=== PATIENT | female | born 1980 | race Two or more races ===

== ENCOUNTER 2024-12-18 14:17 | Emergency (ER) | payer OTHER ==
[~2024-12-18] VITALS: Ht 154.9 cm; Wt 72.6 kg
[2024-12-18] MEDS ORDERED: AUGMENTIN125 MG/5 M (14:30)
[2024-12-18] MEDS ORDERED: KETO10TA2 (14:30)
[2024-12-18] MEDS ORDERED: ONDANSETRON HCL 2 MG/ML VIAL IV ONE (15:00)
[2024-12-18] MEDS ORDERED: FAMOTIDINE/PF 20 MG/2 ML VIAL IV ONE (15:00)
[2024-12-18] MEDS ORDERED: MECLIZINE HCL 25 MG TABLET PO ONE (15:00)
[2024-12-18 16:08] LABS: BASO % 0.6 % (0.1-1.2); EOS # 0.23 (0.04-0.54); EOS % 2.7 % (0.7-7.0); LYMPH # 2.00 (1.18-3.74); LYMPH % 23.7 % (19.3-53.1); MEAN PLATELET VOLUME 11.80 fl (9.4-12.4); MONO # 0.43 (0.24-0.82); MONO % 5.1 % (4.7-12.5); NEUT # 5.70 (1.56-6.13); NEUT % 67.5 % (34.0-71.1); RED CELL DISTRIBUTION WIDTH 15.9 % (11.6-14.4)
[2024-12-18 16:35] LABS: ALT/SGPT 36.0 U/L (12-78); AST/SGOT 24.0 U/L (15-37); BILIRUBIN TOTAL 0.38 mg/dL (0.3-1.2); BUN CREA RATIO 16.0 (7.0-25.0); CREATININE SERUM 0.63 mg/dL (0.55-1.02); GFR 102.66; GLOBULINA 4.0 G/DL (2.4-3.5); GLUCOSE FASTING 98.0 mg/dL (65-100); OSMOLALITY SERUM 286.0 MOSM/KG (275-295)
[2024-12-18] MEDS ORDERED: FUSION PLUS CA1 EACH PO (17:32)
== END 2024-12-18 17:51 | disposition home or self-care (01) ==
LOC: ER 14:17
PROVIDERS: Emergency Medicine
DX: H61.21 Impacted cerumen, right ear (principal); R42 Dizziness and giddiness